=== PATIENT | female | born 1960 | race African-American/Black ===

== ENCOUNTER 2017-01-26 10:00 | Emergency (ER) | payer OTHER ==
--- NOTE | ~2017-01-26 | US85 ---
[facility] A Service of [facility] RADIOLOGY TEXT RESULTS PATIENT: LUPE EATON LOCATION: CFTX : 58 UNIT #: [id number] AGE: [address]: Jacy Kenney SEX: F ORDER DR: [id number] [facility] [address] [place], [place] [address] [id number] E MR#: [id number] #: [id number] NAME: LUPE EATON : 1960 SEX: F STUDY DATE/TIME: 01/26/2017 10:24 UNIT: [facility] ROOM: STUDY DESCRIPTION: [email or web address] Attending Physician: Jacy Kenney P.A.-C. Ordering Physician: Jacy Kenney P.A.-C. Primary Care Physician: Wilmar Dubois Jr., A.P.R.N. MEDICAL IMAGING REPORT This report is preliminary unless electronic signature is present EXAM Right leg vein Doppler, 01/26 INDICATIONS Right leg pain and swelling for the last month. No trauma. TECHNIQUE Venous ultrasound examination of the right lower extremity was performed using grayscale, spectral Doppler and color flow Doppler imaging. FINDINGS The examination is negative. There is no evidence of right lower extremity deep venous thrombus from the groin to the lower calf. Visualized greater saphenous vein is also patent. IMPRESSION Negative examination. No evidence of right lower extremity deep venous thrombosis. Dictated by... Osmar Vitale Jr., M.D. THIS IS AN ELECTRONICALLY VERIFIED REPORT Osmar Vitale Jr., M.D. at 01/26/2017 4:42 PM HOWARD/tevin TD: 01/26/2017 11:36 JOB #: [id number] MEDICAL IMAGING REPORT Page 1 of 1 COPY
[~2017-01-26 10:00] MED LIST: ASPIRIN81 M1 PO; BISA-LAX10 MG/SUP1 RC; CIPRO PO; COLACE PO; COREG PO; DICYCLOMINE HCL20 MG PO; FERROUS SULFATE PO; HYDROCHLOROTHIA25 MG PO; HYDROCODONE-APA1 T55 PO; IRON1 TA1 PO; MIRALAX17 GM PO; PERCOCET 5/321 UDTAB PO; PHENERGAN PO; PROTONIX PO; REGLAN PO; VICODIN 5/500 T1 TAB PO; ZANTAC PO; ZOFRAN PO
== END 2017-01-26 10:55 | disposition home or self-care (01) ==
LOC: CFTX 10:00
DX: M25.571 Pain in right ankle and joints of right foot (principal); M25.561 Pain in right knee; I10 Essential (primary) hypertension; F17.210 Nicotine dependence, cigarettes, uncomplicated
CPT/HCPCS: 93971; 96372; 99284; J1885